=== PATIENT | male | born 1955 | race Caucasian/White ===

== ENCOUNTER → 2020-09-13 | Outpatient (CLI) | payer MEDICARE ==
[~2020-09-13] MED LIST: ANUSOL HC SUPP1 SUPP PR; ASPIRIN 325MG325 MG PO; DULCOLAX5 MG PO; LISINOPRIL-HCT1 EAC1 PO; LOPRESSOR50 MG PO; MOBIC15 MG PO; PROSCAR5 MG PO; PROTONIX40 MG PO; SYMBICORT 80-10.2 GM INH
[2020-09-13 16:54] LABS: BUN/CREATININE RATIO 14 (0-10)
[2020-09-13 17:01] LABS: HEMOGLOBIN 17.6 gm/dl (14.0-17.5); RED BLOOD COUNT 5.61 M/UL (4.20-5.50); WHITE BLOOD COUNT 8.2 K/UL (4.5-11.0)
[2020-09-14 09:15] LABS: VITAMIN D, 25-HYDROXY 33.1 ng/mL (30.0-100.0)
[2020-09-14 13:10] LABS: RHEUMATOID ARTHRITIS FACTOR <10.0 IU/mL (0.0-13.9)
[2020-09-14 14:12] LABS: ANTI-DSDNA ANTIBODIES 1 IU/mL (0-9); ANTISCLERODERMA-70 ANTIBODIES <0.2 AI (0.0-0.9); RNP ANTIBODIES 0.3 AI (0.0-0.9); SJOGREN'S ANTI-SS-A <0.2 AI (0.0-0.9)
[2020-09-14 16:12] LABS: ACTIN (SMOOTH MUSCLE) ANTIBODY 4 Units (0-19)
[2020-09-15 16:15] LABS: THYROGLOBULIN ANTIBODY <1.0 IU/mL (0.0-0.9); THYROID PEROXIDASE (TPO) AB <9 IU/mL (0-34)
[2020-09-16 00:09] LABS: CCP ANTIBODIES IGG/IGA 8 units (0-19)
== END ==
LOC: MRI 14:50
PROVIDERS: Family Medicine
DX: J44.1 Chronic obstructive pulmonary disease with (acute) exacerbation (principal); E55.9 Vitamin D deficiency, unspecified; E53.8 Deficiency of other specified B group vitamins; E79.0 Hyperuricemia without signs of inflammatory arthritis and tophaceous disease; R73.09 Other abnormal glucose; R53.83 Other fatigue; M06.30 Rheumatoid nodule, unspecified site; M25.50 Pain in unspecified joint; M54.5 Low back pain; M47.816 Spondylosis without myelopathy or radiculopathy, lumbar region; M48.061 Spinal stenosis, lumbar region without neurogenic claudication; M48.07 Spinal stenosis, lumbosacral region; M19.042 Primary osteoarthritis, left hand; Z12.5 Encounter for screening for malignant neoplasm of prostate; R60.9 Edema, unspecified
CPT/HCPCS: 36415; 72148; 73130; 80053; 80061; 82607; 83036; 83516; 84443; 84550; 85025; 86038; 86140; 86200; 86225; 86235; 86376; 86431; 86800; G0103